=== PATIENT | female | born 1935 | race Caucasian/White ===

== ENCOUNTER 2017-01-31 23:54 | Emergency (ER) | payer OTHER ==
[~2017-01-31] VITALS: Ht 157.5 cm; Wt 68.1 kg
[~2017-01-31 23:54] MED LIST: ASPI81TA28 PO; ATV5X PO; CZR50 PO; Citracal PO; DOCU100C PO; DXY50 PO; EFFSR75 PO; FSM70 PO; GLUCTAB7 PO; LAMO200T38 PO; MTRG45 TOP; MULT-877 PO; OMEG7.5C PO; TYLOTC500 PO
[2017-02-01] VITALS: TEMP 36.7; Ht 157.5 cm; Wt 68.1 kg
--- NOTE | 2017-02-01 00:25 | EMERGENCY ROOM VISIT NOTE ---
History Report prepared by Miguel: John Burgos Under the Supervision of: Dr. Guerita Platt D.O. First contact with patient: 00:03 Chief Complaint: ARM PAIN Stated Complaint: SHARP PAIN IN LEFT ARM History of Present Illness The patient is a 81 year old female who presents to the Emergency Room with complaints of worsening left arm pain that began 12 hours ago. She rates her pain an 8/10 in severity. 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 The patient has been having this pain intermittently over the past 2 weeks, but it was worse today. It has been constant since it began. Her pain starts from her left shoulder and goes down to her wrist. The pain is not present in her hand. She notes some very mild pain into her neck and chest. She denies any numbness or tingling in the extremity. She denies any new activity with her left arm, as she is right handed. She did have some diaphoresis earlier. She denies any history of shoulder problems. She denies any nausea, vomiting, cough, or abdominal pain. She denies any recent changes to her medication. She has a history of a heart murmur. She took 2 Tylenol tonight, that did not help her symptoms. She sees a rn oncology as a precautionary measure. Her latest visit was 1 month ago. She received an ECG and and echocardiogram that were negative. Source of History: patient Onset: 12 hours ago Position: arm (left) Symptom Intensity: 8/10 Quality: sharp Timing: intermittent (for the past two weeks), worsening (today) Associated Symptoms: + diaphoresis, + neck pain (mild left), + chest pain ( mild left), No cough, No nausea, No vomiting, No abdominal pain, No numbness Review of Systems See HPI for pertinent positives & negatives. A total of 10 systems reviewed and were otherwise negative. Past Medical & Surgical Medical Problems: (1) Chest pain (2) Hypertension (3) Seizure (4) Seizure disorder Family History Heart disease Seizures Social History Smoking Status: Never Smoker Marital Status: Housing Status: lives with significant other Occupation Status: retired Current/Historical Medications Scheduled Alendronate Sodium (Alendronate Sodium), 70 MG PO WK Aspirin (Aspirin Ec), 81 MG PO DAILY Docusate Sodium (Stool Softener), 100 MG PO BID Doxycycline Hyclate (Doxycycline Hyclate), 50 MG PO DAILY Yrqkkmaexci-Zytwxhbspzn-Aju C- (Glucosamine Chondroitin), 1 TAB PO BID Lamotrigine (Lamictal), 200 MG PO BID Lorazepam (Lorazepam), 0.5 MG PO HS Losartan Potassium (Losartan Potassium), 50 MG PO DAILY Metronidazole HCl (Metronidazole), 1 APPLN TOP DAILY Multiple Minerals W/ Vitamins (Citracal Plus), 3 TABS PO BID Multiple Vitamins W/ Minerals (Multiple Vitamin/Minerals), 1 TAB PO DAILY Pelican-3 Fatty Acids (Fish Oil), 1 CAP PO DAILY Venlafaxine Hcl (Effexor Extended Rel), 75 MG PO DAILY Scheduled PRN Acetaminophen (Tylenol), 500-1,000 MG PO UD PRN for Headache or Pain Allergies Coded Allergies: Citalopram (Unverified Allergy, Unknown, HEART ATTACK SYMPTOMS, 02/01/17) Physical Exam Vital Signs Date Time Temp Pulse Resp B/P (MAP) Pulse Ox O2 Delivery O2 Flow Rate FiO2 02/01/17 02:31 82 18 152/71 96 02/01/17 01:18 83 18 159/59 95 Room Air 02/01/17 00:11 82 02/01/17 00:00 36.7 76 18 161/71 94 Room Air Physical Exam GENERAL: alert, well appearing, well nourished, no distress, non-toxic EYE EXAM: normal conjunctiva, PERRL and EOM's grossly intact OROPHARYNX: no exudate, no erythema, lips, buccal mucosa, and tongue normal and mucous membranes are moist NECK: supple, no nuchal rigidity, no adenopathy, non-tender LUNGS: Clear to auscultation. Normal chest wall mechanics. No wheezes, rhonchi, or rales. HEART: no murmurs, S1 normal and S2 normal ABDOMEN: abdomen soft, non-tender, normo-active bowel sounds, no masses, no rebound or guarding. BACK: Back is symmetrical on inspection and there is no deformity, no midline tenderness, no CVA tenderness. SKIN: no rashes and no bruising UPPER EXTREMITIES: upper extremities are grossly normal. LOWER EXTREMITIES: No pitting edema. Good pulses. No discoloration. Normal capillary refill. NEURO EXAM: Normal sensorium, cranial nerves II-XII grossly intact, normal speech, no gross weakness of arms, no gross weakness of legs. She is oriented, however she has poor memory. Her daughter states that it is secondary to mild dementia. Medical Decision & Procedures ER Provider Diagnostic Interpretation: Radiology results have been interpreted by the radiologist and reviewed by me. CT C SPINE: Comparison: CT cervical spine 12/20/15. No evidence of acute fracture or subluxation. Stable 2 mm anterolisthesis of C3 on C4. Multilevel disc, facet, and uncovertebral joint degeneration. No spinal canal stenosis. No prevertebral soft tissue swelling. CT CHEST With Contrast: Study is degraded by respiratory motion. No evidence of acute central pulmonary embolism. Distal pulmonary artery branches are suboptimally evaluated. Normal caliber main pulmonary artery. No evidence of right heart strain. Cardiomegaly and coronary atherosclerosis without pericardial effusion. Thoracic aortic atherosclerosis without aneurysm. No adenopathy. Small hiatal hernia. Images acquired during expiratory phase with bronchovascular crowding and bibasilar subsemental atelectasis. No pleural effusion or pneumothorax. Visualized upper abdomen is unremarkable. No acute osseous findings. Chronic T10 compression fracture. Radiologist: Hillary Maki M.D. Laboratory Results 02/01/17 00:10 Red Blood Count 3.65, Mean Corpuscular Volume 95.3, Mean Corpuscular Hemoglobin 31.8, Mean Corpuscular Hemoglobin Concent 33.3, Mean Platelet Volume 9.2, Neutrophils (%) (Auto) 48.5, Lymphocytes (%) (Auto) 34.7, Monocytes (%) (Auto) 14.0, Eosinophils (%) (Auto) 1.9, Basophils (%) (Auto) 0.4, Neutrophils # (Auto ) 3.53, Lymphocytes # (Auto) 2.53, Monocytes # (Auto) 1.02, Eosinophils # (Auto ) 0.14, Basophils # (Auto) 0.03 02/01/17 00:10 Test 02/01/17 00:10 White Blood Count 7.29 K/uL (4.8-10.8) Red Blood Count 3.65 M/uL (4.2-5.4) Hemoglobin 11.6 g/dL (12.0-16.0) Hematocrit 34.8 % (37-47) Mean Corpuscular Volume 95.3 fL (80-100) Mean Corpuscular Hemoglobin 31.8 pg (25-34) Mean Corpuscular Hemoglobin Concent 33.3 g/dl (32-36) Platelet Count 240 K/uL (130-400) Mean Platelet Volume 9.2 fL (7.4-10.4) Neutrophils (%) (Auto) 48.5 % Lymphocytes (%) (Auto) 34.7 % Monocytes (%) (Auto) 14.0 % Eosinophils (%) (Auto) 1.9 % Basophils (%) (Auto) 0.4 % Neutrophils # (Auto) 3.53 K/uL (1.4-6.5) Lymphocytes # (Auto) 2.53 K/uL (1.2-3.4) Monocytes # (Auto) 1.02 K/uL (0.11-0.59) Eosinophils # (Auto) 0.14 K/uL (0-0.5) Basophils # (Auto) 0.03 K/uL (0-0.2) RDW Standard Deviation 47.2 fL (36.4-46.3) RDW Coefficient of Variation 13.6 % (11.5-14.5) Immature Granulocyte % (Auto) 0.5 % Immature Granulocyte # (Auto) 0.04 K/uL (0.00-0.02) Prothrombin Time 10.1 SECONDS (9.0-12.0) Prothromb Time International Ratio 0.9 (0.9-1.1) D-Dimer 700 ug/L FEU (0-500) Anion Gap 7.0 mmol/L (3-11) Est Creatinine Clear Calc Drug Dose 38.6 ml/min Estimated GFR () 60.3 Estimated GFR (Non- 52.1 BUN/Creatinine Ratio 20.3 (10-20) Calcium Level 9.5 mg/dl (8.5-10.1) Total Bilirubin 0.3 mg/dl (0.2-1) Aspartate Amino Transf (AST/SGOT) 26 U/L (15-37) Alanine Aminotransferase (ALT/SGPT) 26 U/L (12-78) Alkaline Phosphatase 102 U/L (45-117) Troponin I < 0.015 ng/ml (0-0.045) Pro-B-Type Natriuretic Peptide 319 pg/ml (0-1800) Total Protein 7.5 gm/dl (6.4-8.2) Albumin 3.9 gm/dl (3.4-5.0) Globulin 3.6 gm/dl (2.5-4.0) Albumin/Globulin Ratio 1.1 (0.9-2) Laboratory results per my review. Medications Administered Medications (Trade) Dose Ordered Sig/[place] Route Start Time Stop Time Status Last Admin Dose Admin Ibuprofen (Advil Tab) 400 mg NOW STAT PO 02/01/17 02:05 02/01/17 02:06 DC 02/01/17 02:11 400 MG ECG Indication: back/shoulder pain Rate (beats per minute): 85 Rhythm: sinus rhythm Findings: nonspecific-ST abn (V4, V5, V6), no ectopy, other (Normal axis, normal intervals) ED Course 0003: The patient was evaluated in room A10. A complete history and physical exam was performed. 0046: The patient's D-Dimer was elevated. She will get a CT scan. 0205: Ordered Ibuprofen 400 mg PO 0245: Upon reevaluation, the patient is feeling better. I discussed the findings and the treatment plan with the patient. She verbalizes agreement and understanding. She was discharged home. Medical Decision Differential diagnosis: Etiologies such as cardiac ischemia, aortic dissection, pulmonary embolism, pneumonia, pneumothorax, musculoskeletal, infections, pericarditis, myocarditis , esophageal rupture, gastrointestinal, as well as others were entertained. Pt well appearing here despite complaints. Labs and imaging reassuring. Given pain for >12 hours and negative trop with unremarkable ekg doubt ACS. No evidence of infiltrate, pulm edema, pe, dissection, aneurysm, tamponade. Pt stated pain was improving on repeat exam. Discussed all results with pt and family. Doubt Gi etiology. More likely related to arthritis or cervical radiculopathy. Daughter notes pt has complained of left arm pain similar to this previously. Daughter and pt comfortable going home and close f/u as an outpt. Medication Reconcilliation Current Medication List: was personally reviewed by me Blood Pressure Screening Patient's blood pressure: Elevated blood pressure Blood pressure disposition: Elevated BP felt to be situational Impression Primary Impression: Arm pain, left Additional Impression: Chest pain Scribe Attestation The scribe's documentation has been prepared under my direction and personally reviewed by me in its entirety. I confirm that the note above accurately reflects all work, treatment, procedures, and medical decision making performed by me. Departure Information Dispostion Home / Self-Care Referrals Sean Orona M.D. (PCP) Forms HOME CARE DOCUMENTATION FORM, IMPORTANT VISIT INFORMATION [facility] Instructions [facility] Additional Instructions Please continue your regular medications as prescribed. You may use tylenol as needed for pain. If you have persistent pain, you may consider using ibuprofen also. Please do not take it on an empty stomach. If you have any worsening pain, develop chest pain, trouble breathing, fevers, cough, weakness in the arm , discoloration, numbness or tingling, or you have any other new or concerning symptoms, please return to the emergency room. Problem Qualifiers Additional Impression: Chest pain Chest pain type: unspecified Qualified Codes: R07.9 - Chest pain, unspecified
[2017-02-01 00:31] LABS: BASO % 0.4 %; BASO ABS # 0.03 K/uL (0-0.2); COMPLETE YES; EOS % 1.9 %; HEMATOCRIT 34.8 % (37-47); IG% 0.5 %; LYMPH % 34.7 %; LYMPH ABS # 2.53 K/uL (1.2-3.4); MEAN CELL VOLUME 95.3 fL (80-100); MEAN CORPUSCULAR HEMOGLOBIN 31.8 pg (25-34); MEAN CORPUSCULAR HGB CONC 33.3 g/dl (32-36); MEAN PLATELET VOLUME 9.2 fL (7.4-10.4); NEUT % 48.5 %; PLATELET COUNT 240 K/uL (130-400); RED BLOOD COUNT 3.65 M/uL (4.2-5.4); WHITE BLOOD COUNT 7.29 K/uL (4.8-10.8)
[2017-02-01 00:40] LABS: INR 0.9 (0.9-1.1); PROTHROMBIN TIME (PATIENT) 10.1 SECONDS (9.0-12.0)
[2017-02-01 00:46] LABS: ALT/SGPT 26 U/L (12-78); AST/SGOT 26 U/L (15-37); BLOOD UREA NITROGEN 20 mg/dl (7-18); BUN/CREATININE RATIO 20.3 (10-20); CALCIUM 9.5 mg/dl (8.5-10.1); CARBON DIOXIDE 31 mmol/L (21-32); CHLORIDE 102 mmol/L (98-107); GLUCOSE 78 mg/dl (70-99); POTASSIUM 4.4 mmol/L (3.5-5.1); SODIUM 140 mmol/L (136-145)
[2017-02-01 00:51] LABS: ALB/GLOB RATIO 1.1 (0.9-2); ALKALINE PHOSPHATASE 102 U/L (45-117)
[2017-02-01] MEDS ORDERED: OPTIRAY 320 IV PRN (01:00)
[2017-02-01] MEDS ORDERED: MULT-663 PO (01:20)
[2017-02-01] MEDS ORDERED: IBUPROFEN 200 MG TAB PO STA (02:05)
[2017-02-01 02:31] VITALS: BP 152/71; PULSE 82; O2SAT 96
--- NOTE | 2017-02-01 06:44 | DIAGNOSTIC IMAGING REPORT ---
C-SPINE ROUTINE 4 OR 5 VIEWS CLINICAL HISTORY: neck pain COMPARISON STUDY: No previous studies for comparison. FINDINGS: There are moderately advanced degenerative changes most pronounced at the C5-6 level. There is 3.7 mm of anterolisthesis of C3 on C4, likely arthritic. The prevertebral soft tissues are normal. No acute fractures are visualized. There is uncovertebral joint spurring with right-sided foraminal encroachment most pronounced at C5-6 and C6-7 levels. IMPRESSION: Moderate degenerative change. No acute fractures identified. Electronically signed by: Ed Gerber M.D. 02/01/2017 6:43 AM Dictated Date/Time: 02/01/2017 6:41 AM
--- NOTE | 2017-02-01 06:45 | DIAGNOSTIC IMAGING REPORT ---
LEFT SHOULDER MIN 2 VIEWS ROUTINE CLINICAL HISTORY: Left shoulder pain COMPARISON: None. DISCUSSION: No acute fractures are visualized. There is a 2 cm loose body projected over the inferior aspect of the joint. The heart appears enlarged. IMPRESSION: 1. No acute fractures 2. Degenerative changes with a 2 cm inferior loose body Electronically signed by: Ed Gerber M.D. 02/01/2017 6:44 AM Dictated Date/Time: 02/01/2017 6:43 AM
--- NOTE | 2017-02-01 06:46 | DIAGNOSTIC IMAGING REPORT ---
CHEST ONE VIEW PORTABLE CLINICAL HISTORY: Atypical chest pain COMPARISON STUDY: 12/20/2015 FINDINGS: There is an azygos fissure. The heart is borderline enlarged. There is no failure. There is no focal pulmonary consolidation. There are no pleural effusions.[ IMPRESSION: No active disease in the chest. Electronically signed by: Ed Gerbre M.D. 02/01/2017 6:45 AM Dictated Date/Time: 02/01/2017 6:44 AM
--- NOTE | 2017-02-01 07:02 | DIAGNOSTIC IMAGING REPORT ---
CT OF THE CERVICAL SPINE CLINICAL HISTORY: Neck pain with left arm radiculopathy. COMPARISON STUDY: Conventional radiographic study dated 02/01/2017, CT scan dated 12/20/2015 CT DOSE: TECHNIQUE: CT scan of the cervical spine was performed from the skull base to the thoracic inlet. Images are reviewed in the axial, sagittal, and coronal planes. IV contrast was not administered for this examination. A dose lowering technique was utilized adhering to the principles of ALARA. FINDINGS: The visualized portions of the lung apices reveal no evidence of pneumothorax. There is an azygos fissure The prevertebral soft tissues are normal. No fractures or traumatic subluxations are visualized. There are moderate multilevel degenerative changes. There is 3.3 mm of anterolisthesis of C3 on C4. This is felt to be arthritic. This remain similar to the prior December 2015 study. There is disc space narrowing most pronounced the C5-6 level. There are stable corticated ossicles adjacent to the odontoid tip. There is facet joint arthropathy. There is uncovertebral joint spurring. IMPRESSION: Multilevel degenerative change. No acute fractures identified. Stable anterolisthesis of C3 on C4 which is felt to be arthritic Electronically signed by: Ed Gerber M.D. 02/01/2017 7:00 AM Dictated Date/Time: 02/01/2017 6:56 AM
--- NOTE | 2017-02-01 07:29 | DIAGNOSTIC IMAGING REPORT ---
CHEST CTA for PULMONARY ARTERIES CT DOSE: 561.45 mGy.cm HISTORY: Atypical chest pain. Left arm pain. Short of breath. TECHNIQUE: Multiaxial CT images of the chest were performed following the intravenous administration of contrast to evaluate the pulmonary arteries. Maximal intensity projection images were also obtained. A dose lowering technique was utilized adhering to the principles of ALARA. COMPARISON STUDY: None. FINDINGS: Old moderate compression deformity at T10. Mild calcified plaque within the normal caliber thoracic aorta. No evidence for aortic dissection. The heart is enlarged. No pleural or pericardial effusions. Bilateral lower lobe segmental and subsegmental pulmonary arteries are nondiagnostic due to the motion artifact. Remaining pulmonary arteries show no filling defect to suggest pulmonary embolus. No pneumothorax. The central airways are patent. Small right azygos lobe. Bibasilar linear densities consistent with subsegmental atelectasis. The liver, spleen, and visualized adrenal glands are unremarkable. Small hiatus hernia. No mediastinal or hilar lymphadenopathy. IMPRESSION: No evidence for pulmonary embolus with limitations as described above. Electronically signed by: Aakash Cuadra M.D. 02/01/2017 7:28 AM Dictated Date/Time: 02/01/2017 7:21 AM
== END 2017-02-01 02:31 | disposition home or self-care (01) ==
LOC: C.EDB 23:55 → C.EDA 02-01 02:31
DX: M79.602 Pain in left arm (principal); R07.9 Chest pain, unspecified; R79.1 Abnormal coagulation profile; I10 Essential (primary) hypertension; G40.909 Epilepsy, unspecified, not intractable, without status epilepticus; Z79.899 Other long term (current) drug therapy

== ENCOUNTER → 2017-02-02 | Outpatient (CLI) | payer OTHER ==
[~2017-02-02] MED LIST changes: -Citracal PO; +MULT-663 PO
--- NOTE | 2017-02-02 13:10 | MAMMOGRAPHY REPORT ---
BILATERAL DIGITAL SCREENING MAMMOGRAM WITH CAD: 02/02/2017 CLINICAL HISTORY: Routine screening. Patient has no complaints. TECHNIQUE: Bilateral CC and MLO views were obtained. Current study was also evaluated with a Compute r Aided Detection (CAD) system. COMPARISON: Comparison is made to exams dated: 01/08/2016 mammogram, 01/02/2015 mammogram, 01/01/2014 nayely mogram, 12/30/2012 mammogram, 12/22/2011 mammogram, and 12/05/2010 mammogram - [facility] er. BREAST COMPOSITION: The tissue of both breasts is heterogeneously dense, which may obscure small mas ses. FINDINGS: There is a stable grouping of punctate microcalcifications in the left upper outer quadrant . Other scattered benign-appearing calcifications are seen in the left breast. There are mild vascu lar calcifications bilaterally. No suspicious mass, architectural distortion or cluster of suspiciou s microcalcifications is seen. IMPRESSION: ACR BI-RADS CATEGORY 1: NEGATIVE There is no mammographic evidence of malignancy. A 1 year screening mammogram is recommended. The pa tient will receive written notification of the results. Approximately 10% of breast cancers are not detected with mammography. A negative mammographic report should not delay biopsy if a clinically suggestive mass is present. Guillermina Walden M.D. ay/:02/02/2017 12:21:19 Dental Office Assistant: Rosaura SANCHES(Elsie)(Erna)([place]), [facility] letter sent: Normal 1/2 BI-RADS Code: ACR BI-RADS Category 1: Negative
== END | disposition home or self-care (01) ==
LOC: C.MAMM 10:16
PROVIDERS: ATTEND Family Medicine
DX: Z12.31 Encounter for screening mammogram for malignant neoplasm of breast (principal)